=== PATIENT | male | born 1990 | race Caucasian/White ===

== ENCOUNTER → 2018-04-25 | Outpatient (CLI) | payer SELFPAY | LOC: M OUTALCOH 08:23 | DX: Z03.89 Encounter for observation for other suspected diseases and conditions ruled out (principal) ==

== ENCOUNTER → 2018-06-25 | Outpatient (CLI) | payer SELFPAY | LOC: M OUTALCOH 13:26 | DX: Z13.9 Encounter for screening, unspecified (principal); F12.20 Cannabis dependence, uncomplicated; F10.10 Alcohol abuse, uncomplicated ==

== ENCOUNTER 2018-07-02 13:40 | Outpatient (RCR) | payer SELFPAY | END 2018-07-18 | LOC: M OUTALCOH 13:40 | DX: F12.20 Cannabis dependence, uncomplicated (principal); F10.10 Alcohol abuse, uncomplicated; F17.200 Nicotine dependence, unspecified, uncomplicated ==

== ENCOUNTER 2018-08-15 16:00 | Outpatient (RCR) | payer SELFPAY | END 2018-08-18 | LOC: M OUTALCOH 16:00 | PROVIDERS: ATTEND Psychiatry & Neurology Psychiatry | DX: F12.20 Cannabis dependence, uncomplicated (principal); F10.10 Alcohol abuse, uncomplicated; F17.200 Nicotine dependence, unspecified, uncomplicated ==

== ENCOUNTER 2018-09-16 16:00 | Outpatient (RCR) | payer SELFPAY | END 2018-09-18 | LOC: M OUTALCOH 16:00 | PROVIDERS: ATTEND Psychiatry & Neurology Psychiatry | DX: F12.20 Cannabis dependence, uncomplicated (principal); F10.10 Alcohol abuse, uncomplicated; F17.200 Nicotine dependence, unspecified, uncomplicated ==

== ENCOUNTER 2018-10-14 16:00 | Outpatient (RCR) | payer SELFPAY | END 2018-10-16 | LOC: M OUTALCOH 16:00 | PROVIDERS: ATTEND Psychiatry & Neurology Psychiatry | DX: F12.20 Cannabis dependence, uncomplicated (principal); F10.10 Alcohol abuse, uncomplicated; F17.200 Nicotine dependence, unspecified, uncomplicated ==

== ENCOUNTER 2020-03-16 23:17 | Inpatient (IN) | payer OTHER, SELFPAY ==
[2020-03-16] MEDS ORDERED: SODIUM BICARBONATE 8.4% INJ 50 ML SYRINGE ONE (23:18)
[2020-03-16] MEDS ORDERED: EPINEPHrine 1MG/10ML SYRINGE 1.5IN ONE (23:18)
[2020-03-17] MEDS ORDERED: MIDAZOLAM INJ 2MG/2ML VIAL (J2250 PER 1MG) ONE ×3 (00:46→03:06)
[2020-03-17] MEDS ORDERED: PROPOFOL 1,000 MG/100 ML VIAL ONE ×3 (01:03→18:43)
[2020-03-17] MEDS ORDERED: PANTOPRAZOLE 40MG VIAL (C9113 PER 1) ONE (08:24)
[2020-03-17] MEDS ORDERED: HEPARIN SOD (PORCINE) 5000UNITS/ML 1ML VIAL/SYRINGE ONE (18:43)
[2020-03-18] MEDS ORDERED: LevoFLOXacin 500MG/100ML IV BAG (J1956 PER 250MG) ONE (00:44)
[2020-03-18] MEDS ORDERED: ACETAMINOPHEN 650 MG SUPP ONE (00:44)
[2020-03-18] MEDS ORDERED: HEPARIN SOD (PORCINE) 5000UNITS/ML 1ML VIAL/SYRINGE ONE (05:10)
[2020-03-18] MEDS ORDERED: PROPOFOL 1,000 MG/100 ML VIAL ONE ×4 (05:10→20:07)
[2020-03-18] MEDS ORDERED: PANTOPRAZOLE 40MG VIAL (C9113 PER 1) ONE (08:46)
[2020-03-18] MEDS ORDERED: MIDAZOLAM INJ 2MG/2ML VIAL (J2250 PER 1MG) ONE (08:46)
[2020-05-02 11:53] LABS: BLOOD UREA NITROGEN 27 MG/DL (7-18); CALCIUM LEVEL 8.6 MG/DL (8.5-10.1); CARBON DIOXIDE LEVEL 27 MEQ/L (21-32); CHLORIDE LEVEL 112 MEQ/L (98-107); CREATININE FOR GFR 0.94 MG/DL (0.70-1.30); GLOMERULAR FILTRATION RATE > 60.0 (>60); GLUCOSE, FASTING 102 MG/DL (70-100); POTASSIUM SERUM 4.1 MEQ/L (3.5-5.1); SODIUM LEVEL 146 MEQ/L (136-145)
[2020-05-03 13:32] LABS: HEMATOCRIT 45.1 % (42.0-52.0); HEMOGLOBIN 13.6 g/dl (13.5-17.5); INR 1.26; MEAN CORPUSCULAR HGB CONC 30.2 g/dl (32.0-36.5); PLATELET COUNT, AUTOMATED 181 10^3/uL (150-450); PROTHROMBIN TIME 16.1 SECONDS (11.8-14.0); RED BLOOD COUNT 4.85 10^6/uL (4.30-6.10); WHITE BLOOD COUNT 8.1 10^3/uL (4.0-10.0)
[2020-05-03 13:33] LABS: ATYPICAL LYMPH 4 % (0-5); EOSINOPHILS 1 % (0-3); LYMPHOCYTES 53 % (16-44); MONOCYTES 11 % (0-5); NEUTROPHILS 30 % (28-66); PLATELET ESTIMATE NORMAL (NORMAL)
[2020-05-03 15:31] LABS: AMORPHOUS SEDIMENT SMALL (NEGATIVE); APPEARANCE, URINE CLOUDY (CLEAR); BACTERIA, URINE AUTO NEGATIVE (NEGATIVE); BILIRUBIN, URINE AUTO NEGATIVE (NEGATIVE); BLOOD, URINE BLOOD 2+ (NEGATIVE); COLOR, URINE YELLOW (YELLOW); GLUCOSE, URINE (UA) AUTO 1+ mg/dL (NEGATIVE); KETONE, URINE AUTO NEGATIVE (NEGATIVE); LEUKOCYTE ESTERASE, URINE AUTO NEGATIVE (NEGATIVE); MUCUS, URINE SMALL (NEGATIVE); NITRITE, URINE AUTO NEGATIVE (NEGATIVE); PROTEIN, URINE AUTO 2+ mg/dL (NEGATIVE); RBC, URINE AUTO 115 /HPF (0-3); SQUAMOUS EPITHELIAL CELL UR AU 0 /HPF (0-6); TRANSITIONAL EPITHELIAL AUTO 12 /HPF; UROBILINOGEN, URINE AUTO 0.2 mg/dL (0.0-2.0); WBC, URINE AUTO 35 /HPF (0-3)
--- NOTE | 2020-05-09 08:24 | REP ---
PORTABLE CHEST X-RAY: SINGLE VIEW HISTORY: Acute respiratory failure. Endotracheal tube placement. Report was delayed because of a malware attach on the facility. COMPARISON: From the previous day 03/17/2020. FINDINGS: An endotracheal tube has been passed into good position at the level of the proximal clavicles. A nasogastric tube enters the left upper quadrant of the abdomen. Oxygen delivery tubing and monitoring electrodes are seen. There is clothing or bedding artifact producing a modeled pattern of density. No infiltrate is seen in the lung gonzalez. Cardiomediastinal silhouette is unremarkable. There is a metallic fishhook-shaped device projecting over the medial clavicle on the left consistent with clothing or jewelry artifact as well. IMPRESSION: Endotracheal and nasogastric tubes in good position. Clothing artifact and jewelry artifact as noted. No acute infiltrate. MTDD
--- NOTE | 2020-05-09 08:25 | REP ---
CT OF THE BRAIN WITHOUT CONTRAST: HISTORY: Acute respiratory distress. COMPARISON: CT study of the brain from 03/16/20. FINDINGS: Preliminary digital dross skimmer radiograph demonstrates an endotracheal and a nasogastric tube. Bone window settings demonstrate an intact bony calvarium. No intraorbital abnormality is seen. The visualized paranasal sinuses are unremarkable. On soft tissue window settings, the lateral and third ventricles are small, decreased in size from the earlier study two days prior. There is loss of adler- white differentiation pattern extensively in the parietal lobes and occipital lobes bilaterally as well as in the basal ganglia. This represents a change from the prior study and is consistent with fairly extensive anoxic encephalopathy. There is no evidence of intracranial hemorrhage. No mass, extra-axial fluid collection or midline shift is seen. IMPRESSION: Loss of adler-white differentiation in the parietal and occipital lobes bilaterally within the basal ganglia as well, consistent with extensive anoxic encephalopathy. Diffuse cerebral edema. No evidence of intracranial hemorrhage. MTDD
--- NOTE | 2020-05-09 08:29 | REP ---
PORTABLE CHEST X-RAY: HISTORY: Trauma. FINDINGS: Mediastinum and cardiac silhouette are normal. Lung gonzalez are clear. No focal consolidation, effusion or pneumothorax. Skeletal structures appear intact. IMPRESSION: Normal portable chest x-ray. MTDD
--- NOTE | 2020-05-09 08:30 | REP ---
PORTABLE CHEST X-RAY: SINGLE VIEW This report was delayed due to a protracted network disruption experienced by this facility. HISTORY: Trauma, hanging. FINDINGS: The lungs are well-inflated and clear. NG tube enters the left upper quadrant. Endotracheal tube was seen at the level of the proximal clavicles. Monitoring electrodes and oxygen delivery tubing are seen. There is no evidence of pneumothorax or pneumomediastinum. Heart is not enlarged. No rib or other fracture is seen. IMPRESSION: Endotracheal and nasogastric tubes in place. No active disease. MTDD
--- NOTE | 2020-05-11 10:58 | ECGEPIP ---
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
--- NOTE | 2020-05-11 13:14 | CCN ---
DATE: 03/18/2020 START TIME: 0840 hours STOP TIME: 0928 hours SUBJECTIVE: I attended Robert Acosta here in the intensive care unit. Patient was examined and chart has been reviewed. The hospital computer system is still inoperative. T-max overnight 104. Heart rate generally in the 120s to 150s and varies with agitation/stimulation and his temperature. Blood pressure in the 120s to 140s. He is making reasonable urine. All laboratories are currently pending this morning. Chest x-ray done at the bedside shows lines and tubes in good position. There is a metallic object seen on the film, which was found to be his necklace behind him. CT scan of the head done this morning without contrast shows marked worsening of diffuse edema. OBJECTIVE: On exam, he has no cough. No gag and no corneals. There is anisocoria, right greater than left, without significant reaction to light. He has no deep tendon reflexes. Babinski shows no motion at all. He does over- breathe the ventilator at times. He goes from periods of apnea to significant asynchronous respiratory efforts. LABORATORY DATA: Most recent laboratory done are now available from this morning. White blood cell count of 22,000, hemoglobin of 15.7, platelet count 286,000, 80% segs, and no bands. All cultures are currently pending. Sodium 143, K 4.4, chloride 109, CO2 of 22, BUN 30, creatinine 1.2, glucose 134. ALT 1113 with an AST of 1481. DISCUSSION: I had a very lengthy discussion by phone with his mother this morning and updated her. She would like a formal neurology evaluation and we will arrange that for her. I did discuss with her his very poor prognosis and this will be discussed further below. MOST PRESSING PROBLEMS REQUIRING MY IMMEDIATE PRESENCE AT THE BEDSIDE: 1. Profound anoxic encephalopathy status post suicide attempt. 2. Abnormal liver functions likely on the bases of the above. PLAN: At this point, we will continue our current level of supportive care. I did discuss with his mother by phone this morning his current status. We will obtain a formal neurology evaluation. At this point, his exam suggests dwindling brainstem function and my suspicion is he will likely progress to brain criteria in the next 24 hours. I did discuss with his mother his poor prognosis. At this point, we will continue his current level of supportive care. Ulcer and deep venous thrombosis (DVT) prophylaxis are in place. The ventilator bundle is in place as well. In view of his fever, he was treated with empiric antibiotics and all cultures are pending, but my suspicion is that this may be a central fever as well. Prognosis remains grim. I left the bedside at 0928 hours with 48 minutes of critical care time at the bedside no including procedures. CHERYLE
--- NOTE | 2020-05-11 13:19 | DSES ---
DATE OF ADMISSION: 03/17/2020 DATE OF DISCHARGE/TRANSFER: 03/18/2020 TRANSFER FACILITY: [facility]. BRIEF HISTORY: Mr. Acosta is a 29-year-old gentleman who attempted suicide by hanging yesterday. He was found by family. Initial presentation showed pulseless electrical activity (PEA) then ventricular fibrillation/ventricular tachycardia (VF/VT). CPR was in place at that time from his initial discovery by the family. He did have return of pulse and blood pressure clearly with a perfusable rhythm. He had a significant acidosis at the time of presentation that had cleared. Radiographic evaluation at the time of his admission also showed what is likely a hyoid bone fracture; again, consistent with his presentation. Due to the downtime and the fact that it was an unwitnessed arrest, he did not meet protocol for hypothermia. HOSPITAL COURSE: He was immediately transferred to the intensive care unit. Volume resuscitation was in place. He did spike a fever. Cultures negative to date. He was placed on empiric Levaquin. Repeat CT scan done this morning shows progression of his diffuse edema. On exam, although he has anisocoria, his pupils do have some sluggish movement. He clearly over-breathes the ventilator. Otherwise, essentially unresponsive. No convincing cough or gag. He is making reasonable urine. Last electrolytes showed a sodium of 143, K of 4.4, chloride 109, CO2 of 22, BUN 30, creatinine 1.2, glucose of 134. White blood cell count 19,000, hemoglobin 14, no significant left shift, platelet count 324,000. Most recent arterial blood gas shows a pH of 7.40, pCO2 of 29, pO2 of 136. Saturation 94%. This is a significant improvement from his original presenting blood gas with a pH of 6.964, pCO2 of 68, and pO2 of 160. A long discussion was had with the family concerning his current status. He was evaluated by neurology here who did feel he had a significant anoxic injury. The family would like him to be further evaluated at a higher level of care that has availability of neurosurgical services should they be felt to be appropriate. In view of this, he is being transferred to [facility]. At the time of his transfer, heart rate of 105, blood pressure of 113 systolic. He is not on vasopressors. He is on a cooling blanket and temperature of 96 degrees. For pertinent laboratory information, please refer to the hospital record. Discs with all of his radiographic information are being sent with the patient. CONDITION AT TIME OF TRANSFER: Critical. MTDD
--- NOTE | 2020-05-11 13:42 | HPE ---
DATE OF ADMISSION: 03/17/2020 I was called to evaluate this 29-year-old male in the emergency department, intubated, mechanically ventilated, status post resuscitation. He was brought by emergency medical services, found having hanged himself by the neck. He was intubated in the field. His cardiac rhythm was recorded as pulseless electrical activity. He was receiving chest compressions by bystanders. In the emergency department he was defibrillated three times, given epinephrine, intravenous (IV) bicarbonate. His rhythm was reported as ventricular fibrillation and then supraventricular tachycardia with pulses. His return of spontaneous circulation was approximately 60 minutes. On my arrival, he is intubated with a #7.5 endotracheal tube, which is at 22 cm at the incisors. There is a cervical (C) collar in place. His temperature is 96.6, pulse rate 130, respirations 26/16 delivered, blood pressure 166/76. HEENT: His head is normocephalic. His pupils are 3 mm and nonreactive. Doll's eyes motions are not appreciated. C collar is in place. Endotracheal tube is in place. His mucosae are pink. His neck is supple with a superficial abrasion from the attempted hanging. This is no meningismus. No jugular venous distention or carotid bruit. His trachea appears in midline to me. Heart sounds are regular, rapid, without appreciable murmur. Breath sounds are diminished but auscultable in all four gonzalez. There are no focal adventitious breath sounds appreciated. The chest is symmetric and moving symmetrically with some gasping respiratory efforts. Abdomen is soft with intact bowel sounds in the right lower quadrant. There is no palpable mass, no organomegaly, no bruit. Extremities show no spontaneous movement. There is doughy rigidity. Peripheral pulses are palpable times four. There is no deformity of the extremities. DIAGNOSTIC STUDIES: Portable chest x-ray image was reviewed and shows the endotracheal tube to be high in the trachea. Lung gonzalez are reasonably clear. Heart size is normal. There are no infiltrates. I have no report. CT scan of the head and neck were reviewed. The head CT appears to me to show interstitial edema. Neck CT: I see no dislocation. There is motion artifact. Again, I have no report. Electrolytes are sodium 141, potassium 3.7, chloride 104, CO2 of 16, creatinine 1.65, glucose is 81. ALT 447, AST 1085, bilirubin 0.4. CPK 401. His arterial blood gas shows a pH of 6.94, pCO2 of 68, pO2 of 160. This at 2350. Urine toxicology was positive for opiates and cannabinoids. Electrocardiogram was performed and shows a sinus tachycardia. The primary problem requiring critical attention is acute respiratory failure. We will initiate mechanical ventilation and attempt to increase minute ventilation and recheck arterial blood gasses. I suspect the acidosis is primarily respiratory. A component of metabolic acidosis cannot be ruled out. The patient suffered cardiac arrest from a suicide attempt by hanging. He underwent resuscitation with return of spontaneous circulation in approximately [address] scan to id suggests intraparenchymal edema, which would portend a poor prognosis. We will plan for optimal supportive care and blood pressure management. Currently the patient's blood pressure is quite elevated. We will initiate hydralazine to target a systolic blood pressure of less than 160. Deep venous thrombosis (DVT) prophylaxis and ulcer prophylaxis will be coordinated. I accompanied patient back to the CT scanner for secondary re-imaging at the radiologist's request, as there was some concern about the hyoid bone. I reviewed the case with the emergency room physicians and intensive care unit (ICU) team. We will facilitate transfer now to the intensive care unit for attempted stabilization. The patient's family has been informed and is aware of the patient's poor prognosis. There were 2 hours and 17 minutes spent in the provision of bedside critical care and coordination, exclusive of any procedure time. [facility]
[2020-05-29 10:21] LABS: ABG pH (ARTERIAL) 6.946 UNITS (7.350-7.450)
[2020-05-29 10:22] LABS: ABG BASE EXCESS -18.3 (-2.0-2.0); ABG HCO3 14.5 MEQ/L (22.0-26.0); ABG O2 SATURATION 98.1 % (95.0-99.0); ABG PARTIAL PRESSURE CO2 68.1 mmHg (35.0-45.0); ABG STANDARD HCO3 11.1 MEQ/L (22.0-26.0); ABG TOTAL CO2 16.6 MEQ/L (22.0-29.0)
[2020-05-29 10:25] LABS: ALBUMIN 3.4 GM/DL (3.2-5.2); BILIRUBIN,DIRECT 0.2 MG/DL (0.0-0.2); BILIRUBIN,TOTAL 0.4 MG/DL (0.2-1.0); CALCIUM LEVEL 8.2 MG/DL (8.5-10.1); CK-MB VALUE MASS 7.1 NG/ML (<3.6); CREATININE FOR GFR 1.65 MG/DL (0.70-1.30); GLOMERULAR FILTRATION RATE 52.8 (>60); MB/CK RELATIVE INDEX 1.77 (< OR =4); POTASSIUM SERUM 3.7 MEQ/L (3.5-5.1); TOTAL PROTEIN 6.3 GM/DL (6.4-8.2); TROPONIN I 0.31 NG/ML (< 0.10)
[2020-05-29 10:27] LABS: AMPHETAMINES LEVEL URINE NEGATIVE (NEGATIVE); BARBITURATES URINE NEGATIVE (NEGATIVE); BENZODIAZEPINES URINE NEGATIVE (NEGATIVE); CANNABINOIDS URINE POSITIVE (NEGATIVE); COCAINE METABOLITE URINE NEGATIVE (NEGATIVE); METHADONE URINE NEGATIVE (NEGATIVE); OPIATES URINE POSITIVE (NEGATIVE); PHENCYCLIDINE URINE NEGATIVE (NEGATIVE)
[2020-05-31 15:13] LABS: INR 1.33; PARTIAL THROMBOPLASTIN TIME 33.8 SECONDS (24.2-38.5); PROTHROMBIN TIME 16.8 SECONDS (12.5-14.3)
[2020-05-31 15:14] LABS: LYMPH % 3.9 % (24.0-44.0); MEAN CORPUSCULAR HEMOGLOBIN 27.9 pg (27.0-33.0); MEAN CORPUSCULAR HGB CONC 32.6 g/dl (32.0-36.5); MEAN CORPUSCULAR VOLUME 85.8 fl (80.0-96.0); NEUTROPHILS % 86.6 % (36.0-66.0); PLATELET COUNT, AUTOMATED 324 10^3/uL (150-450); RED BLOOD COUNT 5.01 10^6/uL (4.30-6.10); WHITE BLOOD COUNT 19.5 10^3/uL (4.0-10.0)
[2020-05-31 15:15] LABS: BASO % 0.2 % (0.0-1.0); EOS % 0.1 % (0.0-3.0); LYMPH # 0.8 10^3/uL (1.5-5.0); MONO # 1.7 10^3/uL (0.0-0.8); MONO % 8.8 % (0.0-5.0); NEUTROPHILS # 16.9 10^3/uL (1.5-8.5)
[2020-06-08 10:51] LABS: ABG HCO3 18.5 MEQ/L (22.0-26.0); ABG MODE OF VENT RA; ABG PARTIAL PRESSURE CO2 31.1 mmHg (35.0-45.0); ABG PARTIAL PRESSURE O2 208.3 mmHg (75.0-100.0); ABG TOTAL CO2 19.5 MEQ/L (22.0-29.0); ABG pH (ARTERIAL) 7.393 UNITS (7.350-7.450)
[2020-06-08 10:52] LABS: ABG BASE EXCESS -5.2 (-2.0-2.0); ABG O2 SATURATION 99.6 % (95.0-99.0); ABG STANDARD HCO3 20.3 MEQ/L (22.0-26.0)
[2020-06-08 10:53] LABS: ABG BASE EXCESS -5.3 (-2.0-2.0); ABG HCO3 18.7 MEQ/L (22.0-26.0); ABG MODE OF VENT RA; ABG O2 SATURATION 97.4 % (95.0-99.0); ABG PARTIAL PRESSURE CO2 32.4 mmHg (35.0-45.0); ABG PARTIAL PRESSURE O2 96.9 mmHg (75.0-100.0); ABG SITE ART LINE; ABG STANDARD HCO3 20.1 MEQ/L (22.0-26.0); ABG TOTAL CO2 19.7 MEQ/L (22.0-29.0); ABG pH (ARTERIAL) 7.379 UNITS (7.350-7.450)
[2020-06-08 10:55] LABS: ALBUMIN 3.5 GM/DL (3.2-5.2); ALT/SGPT 1147 U/L (12-78); BILIRUBIN,TOTAL 0.8 MG/DL (0.2-1.0); BLOOD UREA NITROGEN 26 MG/DL (7-18); CALCIUM LEVEL 8.2 MG/DL (8.5-10.1); CARBON DIOXIDE LEVEL 19 MEQ/L (21-32); CHLORIDE LEVEL 108 MEQ/L (98-107); GLOMERULAR FILTRATION RATE > 60.0 (>60); GLUCOSE, FASTING 155 MG/DL (70-100); PHOSPHORUS LEVEL 3.3 MG/DL (2.5-4.9); POTASSIUM SERUM 3.7 MEQ/L (3.5-5.1); SODIUM LEVEL 139 MEQ/L (136-145)
[2020-06-08 11:20] LABS: ALBUMIN 3.7 GM/DL (3.2-5.2); ALT/SGPT 1104 U/L (12-78); BILIRUBIN,TOTAL 1.1 MG/DL (0.2-1.0); BLOOD UREA NITROGEN 24 MG/DL (7-18); CALCIUM LEVEL 8.2 MG/DL (8.5-10.1); CARBON DIOXIDE LEVEL 21 MEQ/L (21-32); CHLORIDE LEVEL 105 MEQ/L (98-107); CREATININE FOR GFR 1.23 MG/DL (0.70-1.30); GLOMERULAR FILTRATION RATE > 60.0 (>60); GLUCOSE, FASTING 149 MG/DL (70-100); SODIUM LEVEL 139 MEQ/L (136-145); TOTAL PROTEIN 6.9 GM/DL (6.4-8.2)
[2020-06-11 08:15] LABS: BLOOD UREA NITROGEN 27 MG/DL (7-18); CALCIUM LEVEL 8.6 MG/DL (8.5-10.1); CARBON DIOXIDE LEVEL 27 MEQ/L (21-32); CHLORIDE LEVEL 112 MEQ/L (98-107); CREATININE FOR GFR 0.94 MG/DL (0.70-1.30); GLOMERULAR FILTRATION RATE > 60.0 (>60); GLUCOSE, FASTING 102 MG/DL (70-100); POTASSIUM SERUM 4.1 MEQ/L (3.5-5.1); SODIUM LEVEL 146 MEQ/L (136-145)
[2020-06-11 08:16] LABS: ABG BASE EXCESS -3.9 (-2.0-2.0); ABG HCO3 18.6 MEQ/L (22.0-26.0); ABG MODE OF VENT R/A; ABG O2 SATURATION 97.6 % (95.0-99.0); ABG PARTIAL PRESSURE CO2 27.9 mmHg (35.0-45.0); ABG PARTIAL PRESSURE O2 96.5 mmHg (75.0-100.0); ABG STANDARD HCO3 21.3 MEQ/L (22.0-26.0); ABG TOTAL CO2 19.4 MEQ/L (22.0-29.0); ABG pH (ARTERIAL) 7.441 UNITS (7.350-7.450)
[2020-06-15 12:11] LABS: BASO % 0.1 % (0.0-1.0); HEMOGLOBIN 15.7 g/dl (13.5-17.5); LYMPH % 9.1 % (24.0-44.0); MEAN CORPUSCULAR HEMOGLOBIN 28.6 pg (27.0-33.0); MEAN CORPUSCULAR HGB CONC 32.7 g/dl (32.0-36.5); MEAN CORPUSCULAR VOLUME 87.4 fl (80.0-96.0); MONO # 2.2 10^3/uL (0.0-0.8); MONO % 9.7 % (0.0-5.0); NEUTROPHILS # 17.8 10^3/uL (1.5-8.5); NEUTROPHILS % 80.5 % (36.0-66.0); PLATELET COUNT, AUTOMATED 286 10^3/uL (150-450); RED BLOOD COUNT 5.49 10^6/uL (4.30-6.10); WHITE BLOOD COUNT 22.1 10^3/uL (4.0-10.0)
[2020-06-15 12:12] LABS: INR 1.34; PROTHROMBIN TIME 16.8 SECONDS (12.5-14.3)
[2020-06-16 15:55] LABS: ALBUMIN 3.4 GM/DL (3.2-5.2); ALT/SGPT 1092 U/L (12-78); BILIRUBIN,TOTAL 0.8 MG/DL (0.2-1.0); BLOOD UREA NITROGEN 31 MG/DL (7-18); CALCIUM LEVEL 8.9 MG/DL (8.5-10.1); CARBON DIOXIDE LEVEL 19 MEQ/L (21-32); CHLORIDE LEVEL 111 MEQ/L (98-107); CREATININE FOR GFR 1.22 MG/DL (0.70-1.30); GLOMERULAR FILTRATION RATE > 60.0 (>60); GLUCOSE, FASTING 138 MG/DL (70-100); PHOSPHORUS LEVEL 2.5 MG/DL (2.5-4.9); POTASSIUM SERUM 4.3 MEQ/L (3.5-5.1); SODIUM LEVEL 145 MEQ/L (136-145); TOTAL PROTEIN 6.9 GM/DL (6.4-8.2)
== END 2020-03-18 20:32 | disposition short-term general hospital (02) | DRG 815 ==
LOC: M ED 23:17 → M ICU 03-17 12:45
PROVIDERS: ADMIT Internal Medicine Pulmonary Disease; ATTEND Internal Medicine Pulmonary Disease
PROC: 5A1945Z Respiratory Ventilation, 24-96 Consecutive Hours (ICD-10-PCS; principal; 2020-03-17)
DX: T71.162A Asphyxiation due to hanging, intentional self-harm, initial encounter (principal); G93.6 Cerebral edema; I49.01 Ventricular fibrillation; J96.00 Acute respiratory failure, unspecified whether with hypoxia or hypercapnia; I46.9 Cardiac arrest, cause unspecified; G93.1 Anoxic brain damage, not elsewhere classified; I47.2 Ventricular tachycardia; E87.4 Mixed disorder of acid-base balance; E87.2 Acidosis; X83.8XXA Intentional self-harm by other specified means, initial encounter; Y92.017 Garden or yard in single-family (private) house as the place of occurrence of the external cause; R94.5 Abnormal results of liver function studies